=== PATIENT | female | born 1960 ===

== ENCOUNTER 2018-03-08 21:08 | Emergency (ER) | payer MEDICAID ==
[2018-03-08 22:21] VITALS: RESP 18; TEMP 98
[2018-03-08] MEDS ORDERED: guaiFENesin 200 mg/10 ml Syrup UD PO ONE (23:40)
[2018-03-08] MEDS: Albuterol-Ipratrop 3 mg / 0.5 (3 ml) UD IH SCH ×2 (23:55→23:59)
--- NOTE | 2018-03-09 00:28 | ED PDOC ---
Arrival/HPI - General Historian: Patient - History of Present Illness Narrative History of Present Illness (Text): 03/09/18 00:27 57 yo F with past medical history of asthma, patient complains of cough productive of white sputum x 4 days associated with L ear pain, sore throat and a headache from coughing. Otherwise: (-) fever, (-) chills, (-) chest pain, (- ) dyspnea, (-) hemoptysis, (-) upper back pain, (-) travel, (-) recent prolonged immobility. PMD Polly <Jacquelyn Hancock PA-C - Last Filed: 03/09/18 01:13> <Nico Beltran - Last Filed: 03/09/18 01:21> - General Chief Complaint: ENT Problem Time Seen by Provider: 03/08/18 22:25 Past Medical History - Infectious Disease Hx of Infectious Diseases: None - Cardiac Hx Cardiac Disorders: No - Pulmonary Hx Asthma: Yes - Neurological Hx Vertigo: Yes - Psychiatric Hx Substance Use: No - Surgical History Hx Section: Yes Hx Tonsillectomy: Yes - Anesthesia Hx Anesthesia: No <Jacquelyn Hancock PA-C - Last Filed: 03/09/18 01:13> Family/Social History Family/Social History: No Known Family HX Smoking Status: Never Smoked Hx Alcohol Use: No Hx Substance Use: No <Jacquelyn Hancock PA-C - Last Filed: 03/09/18 01:13> Allergies/Home Meds <Jacquelyn Hancock PA-C - Last Filed: 03/09/18 01:13> <Nico Beltran - Last Filed: 03/09/18 01:21> Allergies/Adverse Reactions: Allergies No Known Allergies Allergy (Verified 03/08/18 22:25) Home Medications: Home Meds Medication Instructions Recorded Confirmed Meclizine [Antivert] 1 tab PO PRN PRN 03/08/18 03/08/18 Montelukast [Singulair] 1 tab PO DAILY 03/08/18 03/08/18 Review of Systems - Review of Systems Constitutional: absent: Fatigue, Fevers ENT: Sore Throat, Other (L ear pain). absent: Rhinorrhea, Sinus Congestion Respiratory: Cough, Sputum. absent: SOB Cardiovascular: absent: Chest Pain, Palpitations Gastrointestinal: absent: Abdominal Pain, Nausea, Vomiting Musculoskeletal: absent: Arthralgias, Back Pain, Neck Pain, Joint Swelling Skin: absent: Rash, Skin Lesions Neurological: Headache (frrom coughing). absent: Dizziness <Jacquelyn Hancock PA-C - Last Filed: 03/09/18 01:13> Physical Exam Vital Signs Temp Pulse Resp BP Pulse Ox 03/08/18 22:20 98.0 F 92 H 18 155/97 H 97 Temperature: Afebrile Blood Pressure: Hypertensive Pulse: Regular Respiratory Rate: Normal Appearance: Positive for: Well-Appearing, Non-Toxic, Comfortable, Other (pt is coughing ) Pain Distress: None Mental Status: Positive for: Alert and Oriented X 3 - Systems Exam Head: Present: Atraumatic, Normocephalic Pupils: Present: PERRL Extroacular Muscles: Present: EOMI Conjunctiva: Present: Normal Mouth: Present: Moist Mucous Membranes Neck: Present: Normal Range of Motion. No: Meningeal Signs, Lymphadenopathy Respiratory/Chest: Present: Clear to Auscultation, Good Air Exchange, Wheezes (+faint expiratory wheeze audible when the patient is coughing). No: Respiratory Distress, Accessory Muscle Use, Rales, Retracting, Rhonchi Cardiovascular: Present: Regular Rate and Rhythm, Normal S1, S2. No: Murmurs Abdomen: No: Tenderness, Distention, Peritoneal Signs Back: Present: Normal Inspection Upper Extremity: Present: Normal Inspection. No: Cyanosis, Edema Lower Extremity: Present: Normal Inspection. No: Edema Neurological: Present: GCS=15, CN II-XII Intact, Speech Normal, Motor Func Grossly Intact, Normal Sensory Function Skin: Present: Warm, Dry, Normal Color. No: Rashes Psychiatric: Present: Alert, Oriented x 3, Normal Insight, Normal Concentration <Jacquelyn Hancock PA-C - Last Filed: 03/09/18 01:13> Vital Signs Temp Pulse Resp BP Pulse Ox 03/09/18 00:42 86 18 132/83 98 03/08/18 22:20 98.0 F 92 H 18 155/97 H 97 <Nico Beltran - Last Filed: 03/09/18 01:21> Medical Decision Making ED Course and Treatment: 03/09/18 00:28 Plan : - CXR - Guaifenesin PO - Duoneb x2 CXR : ? LLL infiltrate, as read by YOANDY On reevaluation, patient reports improvement of symptoms, denies any CP or SOB. On exam, patient remains awake alert and oriented 3 in no acute distress. Results d/w the patient, diagnosis of bronchitis vs early penumonia d/w the patient. Given zithromax 500 mg PO. Advised to follow up with primary care physician in 1-2 days without fail. Advised to take medication as prescribed. Return to the emergency room at any time for any new or worsening symptoms. Patient states she fully agrees with and understands discharge instructions. States that she agrees with the plan and disposition. Verbalized and repeated discharge instructions and plan. I have given the patient opportunity to ask any additional questions. - RAD Interpretation Radiology Orders: 03/08/18 23:40 CHEST TWO VIEWS (PA/LAT) [RAD] Stat - Medication Orders Current Medication Orders: Discontinued Medications Albuterol/Ipratropium (Duoneb 3 Mg/0.5 Mg (3 Ml) Ud) 3 ml IH Q15M MARLON Stop: 03/09/18 00:01 Last Admin: 03/08/18 23:59 Dose: 3 ml Guaifenesin (Robitussin) 200 mg PO ONCE ONE Stop: 03/08/18 23:41 Last Admin: 03/09/18 00:00 Dose: 200 mg <Jacquelyn Hancock PA-C - Last Filed: 03/09/18 01:13> - RAD Interpretation Radiology Orders: 03/08/18 23:40 CHEST TWO VIEWS (PA/LAT) [RAD] Stat - Medication Orders Current Medication Orders: Discontinued Medications Albuterol/Ipratropium (Duoneb 3 Mg/0.5 Mg (3 Ml) Ud) 3 ml IH Q15M MARLON Stop: 03/09/18 00:01 Last Admin: 03/08/18 23:59 Dose: 3 ml Azithromycin (Zithromax) 500 mg PO STAT STA; Protocol Stop: 03/09/18 01:14 Guaifenesin (Robitussin) 200 mg PO ONCE ONE Stop: 03/08/18 23:41 Last Admin: 03/09/18 00:00 Dose: 200 mg <DevinNico - Last Filed: 03/09/18 01:21> - PA / SCREW MACHINE TENDER / Resident Statement LISHA has reviewed & agrees with the documentation as recorded. <Jacquelyn Hancock PA-C - Last Filed: 03/09/18 01:13> - PA / SCREW MACHINE TENDER / Resident Statement LISHA has reviewed & agrees with the documentation as recorded. <DevinNico - Last Filed: 03/09/18 01:21> Disposition/Present on Arrival - Present on Arrival Any Indicators Present on Arrival: No History of DVT/PE: No History of Uncontrolled Diabetes: No Urinary Catheter: No History of Decub. Ulcer: No History Surgical Site Infection Following: None - Disposition Have Diagnosis and Disposition been Completed?: Yes Disposition Time: 01:15 Patient Plan: Discharge <Jacquelyn Hancock PA-C - Last Filed: 03/09/18 01:13> <DevinNico - Last Filed: 03/09/18 01:21> - Disposition Diagnosis: Asthmatic bronchitis Disposition: HOME/ ROUTINE Patient Problems: Current Active Problems Problem Status Onset Asthmatic bronchitis Acute Condition: STABLE Discharge Instructions (ExitCare): Asthma in Adults, Acute Bronchitis Print Language: SLOVAK Additional Instructions: Thank you for letting us take care of you today. You were treated for asthmatic bronchitis. The emergency medical care you received today was directed at your acute symptoms. If you were prescribed any medication, please fill it and take as directed. It may take several days for your symptoms to resolve. Return to the Emergency Department if your symptoms worsen, do not improve, or if you have any other problems. Please contact your doctor in 2 days for re-evaluation and follow up. Bring any paperwork you were given at discharge with you along with any medications you are taking to your follow up visit. Our treatment cannot replace ongoing medical care by a primary care provider (PCP) outside of the emergency department. Thank you for allowing the [facility] team to be part of your care today. If you had an X-Ray : A Radiologist will review the ED reading if any change in treatment is needed we will contact you. Prescriptions: Albuterol HFA [Ventolin HFA 90 mcg/actuation (8 g)] 2 puff IH [id number] #1 puff Albuterol 0.083% [Albuterol Sulfate 3 Ml] 3 ml IH Q4 #100 neb Azithromycin [Zithromax] 250 mg PO DAILY #4 tab Guaifenesin [Adult Tussin Chest Congestion] 400 mg PO Q6H PRN #300 ml PRN Reason: Cough Nebulizer [Aeroeclipse II] 1 each MC DAILY #1 each Forms: [facility] (Cam[place]onian), WORK NOTE
[2018-03-09 00:42] VITALS: O2SAT 98
[2018-03-09 01:39] VITALS: BP 134/72; PULSE 62
--- NOTE | 2018-03-09 13:31 | RAD ---
Date of service: 03/09/2018 HISTORY: cough COMPARISON: No prior. TECHNIQUE: Chest PA and lateral FINDINGS: LUNGS: Minor bibasilar atelectasis. PLEURA: No significant pleural effusion identified. No pneumothorax apparent. CARDIOVASCULAR: No aortic atherosclerotic calcification present. Cardiomegaly no pulmonary vascular congestion. OSSEOUS STRUCTURES: Minor multilevel degenerative spondylosis of the thoracic spine. VISUALIZED UPPER ABDOMEN: Normal. OTHER FINDINGS: None. IMPRESSION: No active disease.
== END 2018-03-09 01:40 | disposition home or self-care (01) ==
LOC: ED 21:08
DX: J45.909 Unspecified asthma, uncomplicated (principal)